=== PATIENT | male | born 2000 | race Caucasian/White ===

== ENCOUNTER 2024-04-10 00:07 | Emergency (ER) | payer OTHER, BC ==
[2024-04-10 00:39] LABS: BASOPHILS ABSOLUTE AUTO 0.1 K/mm3 (0.0-0.2); BASOPHILS PERCENT AUTO 0.7 % (0.0-1.0); EOSINOPHILS ABSOLUTE AUTO 0.1 K/mm3 (0.0-0.4); EOSINOPHILS PERCENT AUTO 0.7 % (0.0-6.0); HEMATOCRIT 47.5 % (42.0-52.0); HEMOGLOBIN 15.8 gm/dl (14.0-18.0); IMMATURE GRAN ABSOLUTE AUTO 0.07 K/mm3 (0.00-0.05); IMMATURE GRAN PERCENT AUTO 0.7 % (0.0-0.4); LYMPHOCYTES ABSOLUTE AUTO 3.4 K/mm3 (1.0-4.8); LYMPHOCYTES PERCENT AUTO 31.4 % (24.0-44.0); MEAN CORPUSCULAR HEMOGLOBIN 28.6 pg (28.0-32.0); MEAN CORPUSCULAR HGB CONC 33.3 g/dl (32.0-36.0); MEAN CORPUSCULAR VOLUME 85.9 fl (83.0-99.0); MEAN PLATELET VOLUME 9.7 fl (9.4-12.4); MONOCYTES ABSOLUTE AUTO 0.6 K/mm3 (0.0-0.8); MONOCYTES PERCENT AUTO 5.1 % (0.0-8.0); NEUTROPHILS ABSOLUTE AUTO 6.6 K/mm3 (1.8-7.7); NEUTROPHILS PERCENT AUTO 61.4 % (41.0-71.0); PLATELET COUNT,PLT 234 K/mm3 (150-400); RED BLOOD CELL COUNT 5.53 M/mm3 (4.52-5.90); WHITE BLOOD CELL COUNT,WBC 10.74 K/mm3 (3.9-11.3)
[2024-04-10] MEDS: Sodium Chloride 0.9% 1,000 ML IV SCH (00:39)
[2024-04-10] MEDS: Iopamidol 612 MG/ML 100 ML Bottle IVPUSH ONE (00:49)
[2024-04-10 01:00] LABS: A/G RATIO 1.3 (1-2); ALBUMIN 4.4 g/dl (3.4-5.0); BILIRUBIN TOTAL 0.6 mg/dL (0.2-1.0); CALCIUM 9.2 mg/dL (8.5-10.1); CREATININE 1.5 mg/dL (0.7-1.3); EST CRCL DRUG DOSING (CG) 83.96 mL/min; PROTEIN TOTAL,TP 7.9 g/dl (6.4-8.2)
[2024-04-10 01:33] LABS: APPEARANCE,URINE CLEAR (Clear); BILIRUBIN,URINE NEGATIVE (Negative); COLOR,URINE YELLOW (Yellow); GLUCOSE,URINE NEGATIVE (Negative); KETONES,URINE NEGATIVE (Negative); LEUKOCYTE ESTERASE,URINE NEGATIVE (Negative); NITRITE,URINE NEGATIVE (Negative); OCCULT BLOOD,URINE 3+ (Negative); PROTEIN,URINE 1+ (Negative); UROBILINOGEN,URINE 0.2 (0.2-1.0)
[2024-04-10] MEDS: HYDROmorphone 0.5 MG/0.5 ML Syringe IVPUSH ONE (02:13)
[2024-04-10] MEDS: Metoclopramide 10 MG/2 ML SDV IVPUSH ONE (02:14)
[2024-04-10 02:23] LABS: BACTERIA,URINE RARE /hpf (FEW); EPITHELIAL CELLS,URINE 0-5 /hpf (0-5); MUCUS,URINE NOT SEEN /hpf (FEW); RBC,URINE 20-30 /hpf (0-5); WBC,URINE 0-5 /hpf (0-5)
== END 2024-04-10 08:24 | disposition home or self-care (01) ==
LOC: JD.ED 00:07
DX: S02.2XXA Fracture of nasal bones, initial encounter for closed fracture (principal); S80.01XA Contusion of right knee, initial encounter; S80.02XA Contusion of left knee, initial encounter; S30.1XXA Contusion of abdominal wall, initial encounter; T21.24XA Burn of second degree of lower back, initial encounter; V89.2XXA Person injured in unspecified motor-vehicle accident, traffic, initial encounter
CPT/HCPCS: 36415; 70450; 70486; 71260; 72125; 72128; 72131; 74177; 80053; 80307; 81001; 82150; 85025; 86850; 86900; 86901; 96374; 96375; 99284; J1171; J2765; J7030; Q9967; 99285

== ENCOUNTER 2025-04-06 10:31 | Emergency (ER) | payer OTHER, BC ==
[2025-04-06] MEDS ORDERED: Sodium Chloride 0.9% 10 ML Syringe FLUSH PRN (10:40)
[2025-04-06] MEDS: Propofol 200 MG/20 ML SDV ONE ×2 (11:40)
[2025-04-06] MEDS: Propofol 200 MG/20 ML SDV IVPUSH ONE (11:41)
== END 2025-04-06 12:30 | disposition home or self-care (01) ==
LOC: JD.ED 10:31
DX: S43.015A Anterior dislocation of left humerus, initial encounter (principal); V29.99XA Rider (driver) (passenger) of other motorcycle injured in unspecified traffic accident, initial encounter; Y92.410 Unspecified street and highway as the place of occurrence of the external cause; Y93.55 Activity, bike riding
CPT/HCPCS: 23650; 73020; 73030; 99284; J2704; 23655; 99152